=== PATIENT | male | born 2005 | race Caucasian/White ===

== ENCOUNTER 2024-09-25 11:16 | Emergency (ER) | payer SELFPAY | END 2024-09-25 12:53 | disposition home or self-care (01) | LOC: JD.ED 11:16 | DX: S06.0X0A Concussion without loss of consciousness, initial encounter (principal); S16.1XXA Strain of muscle, fascia and tendon at neck level, initial encounter; Z88.0 Allergy status to penicillin; W10.9XXA Fall (on) (from) unspecified stairs and steps, initial encounter | CPT/HCPCS: 70450; 70450-26; 72125; 72125-26; 99283 ==